=== PATIENT | female | born 1990 | race Caucasian/White ===

== ENCOUNTER 2017-10-19 10:18 | Day surgery (SDC) | payer MEDICARE, MEDICAID ==
[~2017-10-19 10:18] MED LIST: Sucralfate 1 GM Tab PO SCH
[2017-10-19] MEDS ORDERED: Lactated Ringers 1,000 ML IV ONE (10:30)
[2017-10-19] MEDS ORDERED: Cyanocobalamin (Vitamin B12) 1,000 MCG/ML SDV IM ONE (11:00)
[2017-10-19] MEDS ORDERED: Glycopyrrolate 0.2 MG/ML 2 ML SDV IVPUSH ONE (11:30)
[2017-10-19] MEDS ORDERED: MVI, Adult with Vitamin K 10 ML, Thiamine 100 MG, Chromium/Copper/Mang/Selen/Zn 1 ML in... IV ONE ×4 (11:30)
[2017-10-19] MEDS ORDERED: fentaNYL 100 MCG/2 ML SDV ONE (11:38)
[2017-10-19] MEDS ORDERED: Propofol 200 MG/20 ML SDV ONE (11:38)
[2017-10-19] MEDS ORDERED: Midazolam 1 MG/ML 2 ML SDV ONE (11:38)
[2017-10-19] MEDS ORDERED: Acetaminophen 500 MG Tab PO ONE (11:45)
[2017-10-19] MEDS ORDERED: Pantoprazole 40 MG Vial IVPUSH ONE (13:12)
[2017-10-19 14:24] VITALS: BP 113/52
[2017-10-20] MEDS ORDERED: fentaNYL 100 MCG/2 ML SDV ONE (14:43)
--- NOTE | 2017-10-26 16:04 | OR ---
DATE OF PROCEDURE: 10/19/2017 PREOPERATIVE DIAGNOSIS: Upper abdominal pain, status post Sahra-en-Y gastric bypass. POSTOPERATIVE DIAGNOSIS: Upper abdominal pain, status post Sahra-en-Y gastric bypass associated with: 1. Superficial marginal ulcer. 2. Clinical picture suggestive of a partial small bowel obstruction. OPERATIVE PROCEDURE: Upper GI endoscopy with biopsy of gastric pouch for CLOtest. ANESTHESIA: IV sedation. INDICATION FOR PROCEDURE: This is a 26-year-old status post previous Sahra-en-Y gastric bypass, presenting with some upper abdominal pain. On questioning the patient, the pain is primarily in the left mid and upper abdomen, it was associated with bloating and cramping in the postprandial period. She does have some epigastric discomfort as well, but the overall picture is suggestive of partial small bowel obstruction in terms of the presentation. Plan is to proceed with upper GI endoscopy to evaluate this aspect of the gastric bypass with biopsies as indicated. Potential risks including bleeding and perforation were discussed and the patient wishes to proceed. DETAILS OF PROCEDURE: The patient was taken to the operating room and placed in a left lateral decubitus position. IV sedation was administered, after which the upper GI endoscope was passed orally through the length of the esophagus and into the gastric pouch, from there through the gastrojejunostomy roughly 20 cm into the Sahra limb. Findings included the superficial-appearing marginal ulcer. This is located just beyond the gastrojejunostomy, more or less flush with the anastomosis in the typical location. This measured perhaps 7 mm in maximal length and was quite superficial covered with some fibrinous exudate at this time. Biopsies were then obtained from the gastric pouch, sent for CLOtest for H. pylori. Minimal bleeding from the biopsy site was seen and the procedure was then concluded. With regard to the ulcer, we will add Carafate to the present Prilosec the patient is on and also give her some Protonix IV in the recovery room. The patient's overall picture was suggestive of a partial small bowel obstruction with the above marginal ulcer being more or less probably somewhat of a separate issue. The plan will be to proceed with a diagnostic laparoscopy on 10/30, with laparotomy if necessary and release of small bowel obstruction and possible bowel resection. Again, this will be scheduled for 10/30. Julian Zargaoza MD /[id number]
== END 2017-10-19 14:30 | disposition home or self-care (01) ==
LOC: JP.SDS 10:18
PROVIDERS: ATTEND Surgery
DX: K28.9 Gastrojejunal ulcer, unspecified as acute or chronic, without hemorrhage or perforation (principal); Z98.84 Bariatric surgery status; Z88.0 Allergy status to penicillin; Z88.8 Allergy status to other drugs, medicaments and biological substances
CPT/HCPCS: 43239; 87081; A9270; C9113; J2250; J2704; J3010; J3411; J3420; J7120; J3490

== ENCOUNTER 2017-10-30 07:53 | Inpatient (IN) | payer MEDICARE, MEDICAID ==
[~2017-10-30 07:53] MED LIST changes: +Acetaminophen 500 MG Tab PO ONE; +Celecoxib 200 MG Cap PO ONE; +Dexamethasone 4 MG/ML SDV ONE; +Dextrose 5%-Lactated Ringers 1,000 ML IV SCH; +Gabapentin 300 MG Cap PO ONE; +Glycopyrrolate 0.2 MG/ML 5 ML MDV ONE; +Neostigmine Methylsulfate 1 MG/ML 5 ML Syringe ONE; +Ondansetron 4 MG/2 ML SDV ONE; +Propofol 200 MG/20 ML SDV ONE; +Rocuronium 50 MG/5 ML Vial ONE; +Scopolamine 1.5 MG Transdermal Patch TRDERM SCH; +Succinylcholine 200 MG/10 ML MDV ONE; -Sucralfate 1 GM Tab PO SCH; +fentaNYL 250 MCG/5 ML SDV ONE
[2017-10-30] MEDS ORDERED: Meropenem 500 MG SDV ONE (08:40)
[2017-10-30] MEDS ORDERED: Ketamine 500 MG/5 ML MDV IV SCH (09:00)
[2017-10-30] MEDS ORDERED: Lidocaine 2% 100 MG/5 ML Syringe IVPUSH ONE (09:00)
[2017-10-30] MEDS ORDERED: Ropivacaine 34 ML, Dexamethasone 8 MG, EPINEPHrine 0.4 MG, Sodium Chloride 0.9% 43.6 ML NERVRT SCH ×4 (09:00)
[2017-10-30] MEDS: cefOXitin 2 GM in Sodium Chloride 0.9% 50 ML IV ONE ×2 (09:53→12:59)
[2017-10-30] MEDS ORDERED: Albuterol/Ipratropium 3.0-0.5 MG/3 ML Neb Soln NEB ONE (10:00)
[2017-10-30] MEDS ORDERED: Lactated Ringers 1,000 ML ONE (10:04)
[2017-10-30] MEDS ORDERED: fentaNYL 250 MCG/5 ML SDV ONE (10:16)
[2017-10-30] MEDS ORDERED: Bupivacaine 0.5%/EPINEPHrine 1:200,000 50 ML MDV ONE (11:19)
[2017-10-30] MEDS ORDERED: fentaNYL 100 MCG/2 ML SDV ONE ×4 (11:27→11:52)
[2017-10-30] MEDS ORDERED: Rocuronium 50 MG/5 ML Vial ONE (11:30)
[2017-10-30] MEDS ORDERED: Nicotine 14 MG/24 Hr Patch TRDERM SCH (12:15)
[2017-10-30] MEDS: Dextrose 5%-Lactated Ringers 1,000 ML IV SCH (12:48)
[2017-10-30] MEDS: Lidocaine 0.4%/D5W 2 GM/500 ML BAG IV SCH (12:57)
[2017-10-30] MEDS: hydrOXYzine HCl 100 MG/2 ML SDV IM PRN (13:41)
[2017-10-30] MEDS ORDERED: Albuterol/Ipratropium 3.0-0.5 MG/3 ML Neb Soln INH PRN (14:00)
[2017-10-30] MEDS ORDERED: Labetalol 20 MG/4 ML Syringe IVPUSH PRN (14:00)
[2017-10-30] MEDS ORDERED: Ondansetron 4 MG/2 ML SDV IVPUSH PRN (14:00)
[2017-10-30] MEDS ORDERED: diphenhydrAMINE 50 MG/ML SDV IVPUSH PRN (14:00)
[2017-10-30] MEDS ORDERED: Metoclopramide 10 MG/2 ML SDV IVPUSH PRN (14:00)
[2017-10-30] MEDS: Albuterol/Ipratropium 3.0-0.5 MG/3 ML Neb Soln INH SCH ×2 (14:39→21:03)
[2017-10-30] MEDS: Gabapentin 250 MG/5 ML Solution ML 470 ML Bottle PO SCH ×2 (14:55→21:00)
[2017-10-30] MEDS: Acetaminophen Soln 650 MG/20.3 ML UD Cup PO SCH ×2 (16:00→21:01)
[2017-10-30] MEDS: cefOXitin 2 GM in Sodium Chloride 0.9% 50 ML IV SCH ×2 (16:18→21:02)
[2017-10-30] MEDS: Pantoprazole 40 MG Vial IVPUSH SCH (16:22)
[2017-10-30] MEDS ORDERED: Naloxone 0.4 MG/ML SDV IV PRN (17:02)
[2017-10-30] MEDS: HYDROmorphone/Normal Saline 15 MG/30 ML PCA IV PRN (17:08)
[2017-10-30] MEDS: MVI, Adult with Vitamin K 10 ML, Thiamine 100 MG, Chromium/Copper/Mang/Selen/Zn 1 ML in... IV SCH ×4 (17:51)
[2017-10-30] MEDS ORDERED: SUBOXONE PRN (18:06)
[2017-10-30] MEDS: Heparin Sodium 5,000 Units/ML Vial SUBCUT SCH (18:08)
[2017-10-31] MEDS: Dextrose 5%-Lactated Ringers 1,000 ML IV SCH ×2 (00:19→07:49)
[2017-10-31] MEDS: LORazepam 2 MG/ML SDV IVPUSH PRN ×5 (00:50→21:40)
[2017-10-31] MEDS ORDERED: Iohexol 647 MG/ML 50 ML SDV PO STA (02:53)
[2017-10-31] MEDS: cefOXitin 2 GM in Sodium Chloride 0.9% 50 ML IV SCH (02:58)
[2017-10-31] MEDS ORDERED: Nicotine 21 MG/24 Hr Patch TRDERM ONE (04:15)
[2017-10-31] MEDS: Acetaminophen Soln 650 MG/20.3 ML UD Cup PO SCH ×4 (04:24→22:31)
[2017-10-31] MEDS: Heparin Sodium 5,000 Units/ML Vial SUBCUT SCH ×2 (05:03→18:20)
[2017-10-31] MEDS: HYDROmorphone/Normal Saline 15 MG/30 ML PCA IV PRN (05:26)
[2017-10-31] MEDS ORDERED: Albuterol 8 GM Inhaler INH PRN (07:05)
[2017-10-31] MEDS ORDERED: HYDROmorphone 2 MG Tab PO PRN (07:11)
[2017-10-31] MEDS: Albuterol/Ipratropium 3.0-0.5 MG/3 ML Neb Soln INH SCH ×4 (07:22→21:57)
[2017-10-31] MEDS: Celecoxib 200 MG Cap PO SCH (07:51)
--- NOTE | 2017-10-31 08:41 | PN ---
DATE OF SERVICE: 10/31/2017 SUBJECTIVE: She is postop day #1. Her pain has been controlled. Upper GI looked good. Her Navarro has been taken out and she has voided. Nicotine patch was increased to 21 mcg, 14 mcg was not holding her cravings for smoking. REVIEW OF SYSTEMS: Remainder of review of systems negative for any pertinent positives and negatives. OBJECTIVE: GENERAL: Kathia Limno is a 26-year-old female. She is alert and oriented. VITAL SIGNS: TPR 99.3, 106, 18. Blood pressure 124/65. HEENT: Negative. NECK: Supple. HEART: Regular rate and rhythm. LUNGS: Clear. ABDOMEN: Dressings dry and intact. Abdominal binder is on. EXTREMITIES: Without peripheral edema. Laparoscopic turned to laparotomy with reduction of small bowel volvulus and closure of internal hernia, revision of the JJ component of the Sahra-en-Y gastric bypass surgery and placement of Interceed mesh for partial SBO secondary to small bowel volvulus and stricture at the JJ and extensive intraabdominal adhesions. Date of surgery, 10/30/2017. PLAN: 1. Step 4 gastric bypass diet. 2. Discontinue HOMOEOPATH and continuous pulse ox. 3. Dilaudid 2 mg 1 to 2 every 4 hours p.r.n. pain. 4. May shower. 5. Ventolin, albuterol inhaler 2 puffs every 4 hours p.r.n. shortness of breath, Dulcolax 2 tabs p.o. daily, Atarax or hydroxyzine 50 mg p.o. t.i.d. p.r.n. anxiety, Provigil 200 mg p.o. daily, Zoloft 100 mg p.o. daily, and Carafate 0.5 g q.i.d. p.o. 6. Good pulmonary toilet. 7. We will evaluate p.r.n. or in a.m. 8. Pharmacy was consulted in regard to Suboxone to hold until after the patient is off the Dilaudid. Emily Villaseñor PA-C /[id number]
--- NOTE | 2017-10-31 08:46 | CR ---
Limited upper GI The patient is status post Sarha-en-Y gastric bypass. There is no extravasation of contrast. The fatou sylvester pouch empties readily into a nondilated Sahra limb. No complications are evident. Impression: 1. Status post Sahra-en-Y gastric bypass without evidence for complication.
[2017-10-31] MEDS: Bisacodyl 5 MG Tab PO SCH (09:22)
[2017-10-31] MEDS: Sertraline 50 MG Tab PO SCH (09:22)
[2017-10-31] MEDS: SCOPOLAMINE PATCH CHECK TOP SCH (09:23)
[2017-10-31] MEDS: Lidocaine 0.4%/D5W 2 GM/500 ML BAG IV SCH (09:26)
[2017-10-31] MEDS: Gabapentin 250 MG/5 ML Solution ML 470 ML Bottle PO SCH ×3 (09:26→21:48)
[2017-10-31] MEDS: Sucralfate Suspension 1 GM/10 ML Cup PO SCH ×3 (09:28→21:54)
[2017-10-31] MEDS: HYDROmorphone 2 MG Tab PO PRN ×3 (10:21→18:20)
[2017-10-31] MEDS: hydrOXYzine HCl 25 MG Tab PO PRN ×2 (12:02→19:44)
[2017-10-31] MEDS: Pantoprazole 40 MG Vial IVPUSH SCH (15:41)
[2017-10-31] MEDS: MVI, Adult with Vitamin K 10 ML, Thiamine 100 MG, Chromium/Copper/Mang/Selen/Zn 1 ML in... IV SCH ×4 (15:43)
[2017-10-31] MEDS: hydrOXYzine HCl 100 MG/2 ML SDV IM PRN (21:48)
[2017-11-01] MEDS: HYDROmorphone 2 MG Tab PO PRN ×3 (00:03→09:09)
[2017-11-01] MEDS: Dextrose 5%-Lactated Ringers 1,000 ML IV SCH (02:05)
[2017-11-01] MEDS: hydrOXYzine HCl 100 MG/2 ML SDV IM PRN (02:44)
[2017-11-01] MEDS: Acetaminophen Soln 650 MG/20.3 ML UD Cup PO SCH (04:20)
[2017-11-01] MEDS: Sucralfate Suspension 1 GM/10 ML Cup PO SCH (05:18)
[2017-11-01] MEDS: Heparin Sodium 5,000 Units/ML Vial SUBCUT SCH (05:19)
[2017-11-01] MEDS: Albuterol/Ipratropium 3.0-0.5 MG/3 ML Neb Soln INH SCH (07:14)
[2017-11-01 07:22] VITALS: BP 125/85
[2017-11-01] MEDS: Bisacodyl 5 MG Tab PO SCH (08:17)
[2017-11-01] MEDS: Sertraline 50 MG Tab PO SCH (08:19)
[2017-11-01] MEDS: Celecoxib 200 MG Cap PO SCH (08:20)
[2017-11-01] MEDS: SCOPOLAMINE PATCH CHECK TOP SCH (08:22)
[2017-11-01] MEDS ORDERED: Modafinil 100 MG Tab PO SCH (09:00)
[2017-11-01] MEDS ORDERED: Cyanocobalamin (Vitamin B12) 1,000 MCG/ML SDV IM ONE (09:00)
[2017-11-01] MEDS ORDERED: Nicotine 21 MG/24 Hr Patch TRDERM SCH (09:00)
[2017-11-01] MEDS: Gabapentin 250 MG/5 ML Solution ML 470 ML Bottle PO SCH (09:10)
--- NOTE | 2017-11-01 11:49 | DISCH ---
ADMISSION DIAGNOSES: Partial small bowel obstruction; SP Sahra-en-Y gastric bypass surgery; unspecified surgical malabsorption; B12 deficiency; allergic rhinitis; history of polydrug abuse; episodic mood disorder; excessive sleepiness; amphetamine abuse in remission; drug- seeking behavior; panic disorder without agoraphobia; fibromyalgia; hyperkinetic syndrome of childhood; attention deficit hyperactivity disorder; methamphetamine abuse, in remission; general anxiety disorder; recurrent depression disorder; vitamin D deficiency. DISCHARGE DIAGNOSES: Laparoscopic turned to laparotomy with reduction of small bowel volvulus and closure of internal hernia, revision of the JJ component of the Sahra-en-Y gastric bypass surgery, and placement of Interceed mesh for partial small bowel obstruction secondary to small bowel volvulus and stricture at the JJ and extensive intraabdominal adhesions. Date of surgery 10/30/2017. HISTORY: Kathia Limon has had a long history of postprandial abdominal pain. After preoperative evaluation and discussion of possible risks and possible complications, she wished to proceed with surgical procedure. HOSPITAL COURSE: Kathia had her surgery on 10/30/2017. She had no operative complications. On postop day #1, she was started on oral pain medication and a step-4 gastric bypass diet. On postoperative day #2, her activity was good. Pain was controlled. She did have 2 bowel movements, and she was ready to be discharged to home. PHYSICAL EXAMINATION: GENERAL: Kathia is a pleasant 26-year-old female. VITAL SIGNS: Height is 5 feet 1.8 inches, weight is 151 pounds, TPR is 99, 107, 18. Blood pressure is 125/85. HEENT: Negative. NECK: Supple. HEART: Regular rate and rhythm. LUNGS: Clear. ABDOMEN: Her incisions look good. Aquacel dressing will be removed. She has a ASHER drain that has been draining in the midline, small amounts of light pink serosanguineous drainage. Abdominal binder has been on. EXTREMITIES: Without peripheral edema. DISPOSITION: Discharged to home. CONDITION: Stable and improving. FOLLOWUP APPOINTMENT: Emily Villaseñor PA-C, on 11/07/2017 at 1 p.m. HOME MEDICATIONS: Tylenol 650 mg q.6 hours, scheduled for 2 weeks; Dilaudid 2 mg 1 to 2 every 4 hours p.r.n. pain, #20; Celebrex 200 mg p.o. daily, #14; she is to resume her home medications; albuterol inhaler 2 puffs every 4 hours; Dulcolax 2 tabs daily; gabapentin 300 mg 3 times a day; iron Vitron-C one tablet daily; mag oxide 400 mg daily; Provigil 200 mg oral daily; nicotine patch, use as directed; omeprazole 20 mg twice daily; multivitamin one twice daily; MiraLAX p.r.n.; sertraline 100 mg daily; Carafate 5 mL oral 4 times a day; hydroxyzine 50 mg oral 3 times a day p.r.n. anxiety. DISCHARGE INSTRUCTIONS: Discontinue taking the Suboxone until she is done with the Loreta in consults with her pain doctor in [place]. Diet: Usual diet as tolerated. Drink 8-10 glasses of water a day. No lifting greater than 10 pounds for 2 weeks[address] Driving, do not drive for 2 weeks or while on pain medication. Shower bathing: May shower. Use incentive spirometer 10 times every hour while awake. Notify provider if any fever, increased pain, nausea, or vomiting. Wear abdominal binder for 2 weeks and then as tolerated. Strip, empty, measure, and drain ASHER drain 4 times a day and when half full. Bring record of drainage to clinic appointments.
--- NOTE | 2017-11-05 13:57 | OR ---
DATE OF PROCEDURE: 10/30/2017 PREOPERATIVE DIAGNOSIS: Partial small bowel obstruction. POSTOPERATIVE DIAGNOSES: 1. Partial small bowel obstruction secondary to small bowel volvulus. 2. 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 3. Extensive intraabdominal adhesions. OPERATIVE PROCEDURES: Diagnostic laparoscopy converted to laparotomy with: 1. Reduction of small bowel volvulus and closure of internal hernia (81371). 2. Revision of the jejunojejunostomy component of Sahra-en-Y gastric bypass (70121). 3. Placement of Interceed mesh to displace viscera from pelvic and abdominal wall to limit recurrent adhesion formation (37881). ANESTHESIA: General plus transversus abdominis plane block. INDICATION FOR PROCEDURE: The patient presents with ongoing postprandial abdominal pain. She was admitted about a month ago at [facility] with a bowel obstruction and has had persistent symptoms since that time. Plan is to treat with a diagnostic laparoscopy, laparotomy if necessary, and release of small bowel obstruction with resectional procedures as indicated. Potential risks including bleeding, infection, leaks from various GI tract closures, problems with recurrence of the problem over time, as well as possibility of cardiopulmonary, septic, or hemorrhagic complications leading to were discussed, and the patient wishes to proceed. DETAILS OF PROCEDURE: The patient was taken to the operating room and placed in a supine position. After general endotracheal anesthesia was induced, she was converted to a lithotomy position and the abdomen prepped and draped. Initially, a transverse incision was made in the left lower quadrant. The peritoneal cavity was entered under direct vision with an Optiview trocar and inflated to 15 mmHg pressure of CO2. Laparoscope was re-inserted. Following this, two 5 mm trocars were placed, one on the right and one on the left side of the abdomen, and general exploration was undertaken. The patient was noted to have quite a bit in the way of adhesions between the lower abdomen and pelvis and omentum and small bowel. These were initially taken down with a combination of blunt and sharp dissection. Exploration at this point revealed what appeared to be a small bowel volvulus. As one attempted to reduce this, beginning at the ileocecal valve, it became evident that the volvulus at this point was too tight to safely reduce laparoscopically, and the decision was made to convert to an open laparotomy. After removal of the trocars, an upper midline incision was made roughly a handsbreadth from the umbilicus upward and carried down through the full-thickness abdominal wall. This then allowed identification of the area of volvulus. With manual reduction, the volvulus was then eventually reduced, pulling the bowel from a left to right direction through the mesenteric defect, which appeared to be underneath the jejunojejunostomy mesenteric defect. Once this was reduced, the bowel was judged to be entirely viable. There did appear to be, however, a fixed stricture, likely related to the chronic positioning of the volvulus at the point where the small bowel entered the jejunojejunostomy. Given this, we opted to revise the jejunojejunostomy at this point. The small bowel at the point of stricturing, i.e. the junction of the Sahra limb into the anastomosis, was then divided with a LOULOU stapler. A portion of this bowel was then resected, due to blood supply issues, and both segments of division were with LOULOU staplers. The small bowel was then traced out 200 cm proximal to the ileocecal valve and, at that point, the Sahra limb reimplanted at that region, giving the patient a somewhat longer biliopancreatic limb. This was accomplished with internal firing of the Endo-LOULOU 60 mm stapler. The common opening was then closed transversely with same stapler, angles anastomosed, and mesenteric defect was approximated with some 3-0 Vicryl stitch. The primary mesenteric defect where the internal hernia had occurred was also then closed with a running 2-0 silk stitch. At this point, no further problems were noted. The abdomen was irrigated with antibiotic- containing saline solution. To limit recurrent adhesion formation, two pieces of Interceed mesh were placed, one down along the anterior pelvic area and then up against the abdominal wall somewhat superior to that. The midline fascia was then approximated with a #2 Vicryl stitch. The subcutaneous tissue was drained with a 10-Thai round Uvaldo-Robin drain and the skin closed with madan. Dressing was applied. The patient was taken to the recovery room in satisfactory condition. Julian Zaragoza MD /[id number]
== END 2017-11-01 10:26 | disposition home or self-care (01) | DRG 330 ==
LOC: JP.SDSSCHI 07:53 → JP.SDS 07:53 → JP.2SS 11:45 → EDSTATUS 12:00
PROVIDERS: ADMIT Surgery; ATTEND Surgery
PROC: 0DS80ZZ Reposition Small Intestine, Open Approach (ICD-10-PCS; principal; 2017-10-30)
PROC: 0DBA0ZX Excision of Jejunum, Open Approach, Diagnostic (ICD-10-PCS; 2017-10-30)
PROC: 0DJD3ZZ Inspection of Lower Intestinal Tract, Percutaneous Approach (ICD-10-PCS; 2017-10-30)
PROC: 3E0M45Z Introduction of Adhesion Barrier into Peritoneal Cavity, Percutaneous Endoscopic Approach (ICD-10-PCS; 2017-10-30)
DX: K56.2 Volvulus (principal); K91.2 Postsurgical malabsorption, not elsewhere classified; K46.9 Unspecified abdominal hernia without obstruction or gangrene; E55.9 Vitamin D deficiency, unspecified; E53.8 Deficiency of other specified B group vitamins; Z98.84 Bariatric surgery status; Z98.0 Intestinal bypass and anastomosis status; F17.210 Nicotine dependence, cigarettes, uncomplicated; F39 Unspecified mood [affective] disorder; F41.1 Generalized anxiety disorder; F32.9 Major depressive disorder, single episode, unspecified; F15.11 Other stimulant abuse, in remission; Z76.5 Malingerer [conscious simulation]; Z53.31 Laparoscopic surgical procedure converted to open procedure; K56.699 Other intestinal obstruction unspecified as to partial versus complete obstruction; K66.0 Peritoneal adhesions (postprocedural) (postinfection)
CPT/HCPCS: 36415; 74240; 74240-26; 80053; 81025; 82728; 83735; 84100; 85027; 88307; 94640; 94762; A9270-GY; C9113; J0171; J0330; J0694; J1100; J1170; J1644; J2001; J2060; J2185; J2405; J2704; J2710; J2795; J3010; J3410; J3411; J3420; J7030; J7042; J7050; J7120; J7620; Q9967